=== PATIENT | male | born 1965 | race African-American/Black ===

== ENCOUNTER 2018-07-18 06:55 | Outpatient (CLI) | payer OTHER ==
--- NOTE | 2018-07-18 12:42 | Ultrasound Report ---
Procedure Date: 07/18/2018 Accession Number: [id number] / [id number] Procedure: US - Abdomen Limited CPT Code: FULL RESULT: EXAM: ABDOMEN ULTRASOUND LIMITED, RUQ EXAM DATE: 07/18/2018 08:35 AM. CLINICAL HISTORY: Abnormal liver function. COMPARISON: None. TECHNIQUE: Real-time scanning was performed with static images obtained. FINDINGS: Liver: Liver demonstrates increased echogenicity and heterogeneity with region of focal fatty sparing in the gallbladder fossa. The liver measures at least 18 cm. Main portal vein flow: Hepatopetal. Gallbladder: Normal. No stones, wall thickening, or sonographic Villasenor's sign. Biliary System: CBD measures 4 mm. No intrahepatic or extrahepatic ductal dilatation. The right kidney measures 12.4 cm in maximal sagittal dimension and does not demonstrate hydronephrosis or mass. Parenchymal blood flow is preserved by color Doppler. Other: None. IMPRESSION: Hepatic steatosis. RADIA
== END 2018-07-18 06:56 | disposition home or self-care (01) ==
LOC: DI 06:55
PROVIDERS: ATTEND Family Medicine
DX: K76.0 Fatty (change of) liver, not elsewhere classified (principal)
CPT/HCPCS: 76705

== ENCOUNTER 2019-11-05 08:00 | Outpatient (CLI) | payer OTHER | END 2019-11-05 23:59 | disposition home or self-care (01) | LOC: LAB.R 08:00 | PROVIDERS: ATTEND Family Medicine | DX: R30.0 Dysuria (principal) | CPT/HCPCS: 87077; 87086 ==

== ENCOUNTER 2020-08-05 08:00 | Outpatient (CLI) | payer OTHER ==
[2020-08-05 11:54] LABS: BILIRUBIN,URINE NEGATIVE (NEGATIVE); GLUCOSE, URINE (UA) NEGATIVE (NEGATIVE); KETONES,URINE (UA) NEGATIVE (NEGATIVE); LEUKOCYTE ESTERASE, URINE MODERATE (NEGATIVE); NITRITE,URINE NEGATIVE (NEGATIVE); OCCULT BLOOD,URINE TRACE-INTA (NEGATIVE); PROTEIN,URINE NEGATIVE (NEGATIVE); UROBILINOGEN,URINE 0.2 (NORMAL) E.U./dL (NORMAL)
[2020-08-05 12:09] LABS: BACTERIA,URINE Moderate /HPF (None Seen); CLARITY,URINE CLOUDY (CLEAR); RBC,URINE 0-5 /HPF (0-5); SQUAMOUS EPITHELIAL CELL,UR RARE Squamous (<= Few)
== END 2020-08-05 23:59 | disposition home or self-care (01) ==
LOC: LAB.R 08:00
PROVIDERS: ATTEND Family Medicine
DX: R30.0 Dysuria (principal)
CPT/HCPCS: 81001; 87086

== ENCOUNTER 2020-11-14 09:19 | Outpatient (CLI) | payer OTHER | END 2020-11-14 09:20 | disposition home or self-care (01) | LOC: LAB.N 09:19 | PROVIDERS: ATTEND Urology | DX: Z85.46 Personal history of malignant neoplasm of prostate (principal) | CPT/HCPCS: 36415; 84153 ==

== ENCOUNTER 2020-12-07 08:00 | Outpatient (CLI) | payer OTHER ==
[2020-12-07 18:24] LABS: CREATININE,URINE 244.2 mg/dL; MICROALBUM/CREATININE RATIO,UR 10.2 ug/mg (<30.0); MICROALBUMIN,URINE 2.5 mg/dL (0-300.0)
[2020-12-07 19:00] LABS: ALBUMIN 4.5 g/dL (3.2-5.5); ALBUMIN/GLOBULIN RATIO 1.6 (1.0-2.2); ALKALINE PHOSPHATASE 50 IU/L (42-121); ALT ALANINE AMINOTRANSFERASE 37 IU/L (10-60); AST ASPARTATE AMINOTRANSFERASE 24 IU/L (10-42); BASOPHILS # (AUTO) 0.1 10^3/uL (0.0-0.1); BILIRUBIN,TOTAL 1.1 mg/dL (0.2-1.0); BUN - BLOOD UREA NITROGEN 15 mg/dL (6-20); CALCIUM 9.4 mg/dL (8.5-10.3); CARBON DIOXIDE - CO2 27 mmol/L (21-32); CHLORIDE 104 mmol/L (101-111); CHOL/HDL RATIO 4.6 (<5.0); CHOLESTEROL 205 mg/dL; CREATININE 1.1 mg/dL (0.6-1.2); EOSINOPHILS # (AUTO) 0.1 10^3/uL (0.0-0.7); EOSINOPHILS % (AUTO) 1.3 %; GLUCOSE 170 mg/dL (70-100); HDL CHOLESTEROL 45 mg/dL; HGB - HEMOGLOBIN 15.3 g/dL (14.0-18.0); LDL CHOLESTEROL,CALCULATED 115 mg/dL; LDL/HDL RATIO 2.6 (<3.6); LYMPHOCYTES # (AUTO) 2.8 10^3/uL (1.5-3.5); LYMPHOCYTES % (AUTO) 45.4 %; MEAN CORPUSCULAR HGB CONC 32.3 g/dL (32.0-36.0); MEAN CORPUSCULAR VOLUME 89.8 fL (80.0-94.0); MEAN PLATELET VOLUME 9.1 fL (7.4-11.4); MONOCYTES # (AUTO) 0.4 10^3/uL (0.0-1.0); NEUTROPHILS # (AUTO) 2.8 10^3/uL (1.5-6.6); NEUTROPHILS % (AUTO) 45.1 %; PLT - PLATELET COUNT 259 10^3/uL (130-450); RED BLOOD COUNT 5.27 10^6/uL (4.70-6.10); SODIUM 139 mmol/L (135-145); TOTAL PROTEIN 7.3 g/dL (6.7-8.2); VLDL CHOLESTEROL 45 mg/dL; WHITE BLOOD COUNT 6.2 x10^3/uL (4.8-10.8)
[2020-12-07 19:38] LABS: HEMOGLOBIN A1c% 6.3 % (4.27-6.07)
== END 2020-12-07 23:59 | disposition home or self-care (01) ==
LOC: LAB.WCP 08:00
PROVIDERS: ATTEND Family Medicine
DX: R73.03 Prediabetes (principal)
CPT/HCPCS: 36415; 80053; 80061; 82043; 82570; 83036; 83721; 85025

== ENCOUNTER 2021-03-02 07:56 | Day surgery (SDC) | payer OTHER ==
[2021-03-02] MEDS ORDERED: LACTATED RINGERS 1,000 ML IV ONE ×2 (08:24→10:13)
[2021-03-02] MEDS ORDERED: fentaNYL 250 MCG/5 ML VIAL ONE (09:50)
[2021-03-02] MEDS ORDERED: MIDAZOLAM 2 MG/2 ML VIAL ONE ×2 (09:50→09:52)
[2021-03-02 10:30] VITALS: BP 122/81
== END 2021-03-02 07:57 | disposition home or self-care (01) ==
LOC: SDS 07:56
PROVIDERS: ATTEND Surgery
PROC: 0DBM8ZZ Excision of Descending Colon, Via Natural or Artificial Opening Endoscopic (ICD-10-PCS; 2021-03-02)
PROC: 0DBN8ZZ Excision of Sigmoid Colon, Via Natural or Artificial Opening Endoscopic (ICD-10-PCS; principal; 2021-03-02 09:00)
DX: Z12.11 Encounter for screening for malignant neoplasm of colon (principal); D12.4 Benign neoplasm of descending colon; D12.5 Benign neoplasm of sigmoid colon; I10 Essential (primary) hypertension; E78.5 Hyperlipidemia, unspecified; Z85.46 Personal history of malignant neoplasm of prostate; Z87.891 Personal history of nicotine dependence
CPT/HCPCS: 45384; 45385; J3010; J7120

== ENCOUNTER 2023-03-13 12:00 | Outpatient (CLI) | payer OTHER ==
[2023-03-13 18:37] LABS: BASOPHILS # (AUTO) 0.1 10^3/uL (0.0-0.1); BASOPHILS % (AUTO) 0.9 %; EOSINOPHILS # (AUTO) 0.1 10^3/uL (0.0-0.7); HCT - HEMATOCRIT 44.3 % (42.0-52.0); HGB - HEMOGLOBIN 13.6 g/dL (14.0-18.0); LYMPHOCYTES # (AUTO) 2.6 10^3/uL (1.5-3.5); LYMPHOCYTES % (AUTO) 28.8 %; MEAN CORPUSCULAR HEMOGLOBIN 26.4 pg (27.0-31.0); MEAN CORPUSCULAR HGB CONC 30.7 g/dL (32.0-36.0); MEAN CORPUSCULAR VOLUME 85.9 fL (80.0-94.0); MEAN PLATELET VOLUME 9.7 fL (7.4-11.4); MONOCYTES # (AUTO) 1.1 10^3/uL (0.0-1.0); MONOCYTES % (AUTO) 11.5 %; NEUTROPHILS # (AUTO) 5.3 10^3/uL (1.5-6.6); NEUTROPHILS % (AUTO) 57.5 %; PLT - PLATELET COUNT 376 10^3/uL (130-450); RED BLOOD COUNT 5.16 10^6/uL (4.70-6.10); RED CELL DISTRIBUTION WIDTH 15.1 % (12.0-15.0); WHITE BLOOD COUNT 9.1 x10^3/uL (4.8-10.8)
[2023-03-13 18:52] LABS: ALBUMIN/GLOBULIN RATIO 0.9 (1.0-2.2); BILIRUBIN,TOTAL 1.2 mg/dL (0.2-1.0); CALCIUM 8.8 mg/dL (8.5-10.3); CREATININE 0.9 mg/dL (0.6-1.2); POTASSIUM 3.7 mmol/L (3.5-5.0); TOTAL PROTEIN 8.3 g/dL (6.7-8.2)
[2023-03-13 19:07] LABS: THYROID STIMULATING HORMONE 1.51 uIU/mL (0.34-5.60)
[2023-03-13 21:01] LABS: ESTIMATED AVERAGE GLUCOSE 163 mg/dL (70-100); HEMOGLOBIN A1c% 7.3 % (4.27-6.07)
== END 2023-03-13 12:15 | disposition home or self-care (01) ==
LOC: LAB.N 12:00
PROVIDERS: ATTEND Registered Nurse
DX: I10 Essential (primary) hypertension (principal); R11.0 Nausea; E66.9 Obesity, unspecified; R10.9 Unspecified abdominal pain; K59.00 Constipation, unspecified
CPT/HCPCS: 36415; 80053; 83036; 84443; 85025

== ENCOUNTER 2023-04-10 14:41 | Emergency (ER) | payer OTHER ==
[2023-04-10 15:10] LABS: BASOPHILS # (AUTO) 0.1 10^3/uL (0.0-0.1); BASOPHILS % (AUTO) 0.7 %; EOSINOPHILS # (AUTO) 0.1 10^3/uL (0.0-0.7); HCT - HEMATOCRIT 42.1 % (42.0-52.0); HGB - HEMOGLOBIN 13.1 g/dL (14.0-18.0); LYMPHOCYTES # (AUTO) 2.7 10^3/uL (1.5-3.5); LYMPHOCYTES % (AUTO) 29.7 %; MEAN CORPUSCULAR HEMOGLOBIN 25.8 pg (27.0-31.0); MEAN CORPUSCULAR HGB CONC 31.1 g/dL (32.0-36.0); MEAN CORPUSCULAR VOLUME 82.9 fL (80.0-94.0); MEAN PLATELET VOLUME 9.4 fL (7.4-11.4); MONOCYTES # (AUTO) 0.8 10^3/uL (0.0-1.0); MONOCYTES % (AUTO) 9.1 %; NEUTROPHILS # (AUTO) 5.4 10^3/uL (1.5-6.6); NEUTROPHILS % (AUTO) 59.3 %; PLT - PLATELET COUNT 454 10^3/uL (130-450); RED BLOOD COUNT 5.08 10^6/uL (4.70-6.10); RED CELL DISTRIBUTION WIDTH 15.7 % (12.0-15.0); WHITE BLOOD COUNT 9.1 x10^3/uL (4.8-10.8)
--- OUTSIDE RECORDS SUMMARY | 2023-04-10 15:10 | EXTERNAL MEDICAL SUMMARY RPT | Continuity of Care Document ---
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 Role Phone Unavailable Unavailable Unavailable Justo Klein,Jose, Mikey Unavailable Unavailabl vito Montgomery, Viktoriya Unavailable Unavailable Javi Patient Registrar, Pallavi Unavailable Unavailable Hortencia, Test Results Unavailable Unavailable Medications date description facility 2023-03-14 00:00 colchicine All 2023-03-14 00:00 colchicine All 2023-03-14 00:00 colchicine All 2023-03-13 00:00 sodium,potassium,mag sulfates A 2023-03-13 00:00 sodium,potassium,mag sulfates A 2023-03-13 00:00 sodium,potassium,mag sulfates A 2023-03-13 00:00 sodium,potassium,mag sulfates A 2023-03-13 00:00 naproxen sodium All 2023-03-14 00:00 naproxen sodium All 2023-03-15 00:00 naproxen sodium All 2023-03-15 00:00 naproxen sodium All 2023-03-13 00:00 naproxen sodium All 2023-03-14 00:00 naproxen sodium All 2023-03-15 00:00 naproxen sodium All 2023-03-15 00:00 naproxen sodium All 2023-03-13 00:00 sodium,potassium,mag sulfates A 2023-03-13 00:00 sodium,potassium,mag sulfates A 2023-03-13 00:00 sodium,potassium,mag sulfates A 2023-03-13 00:00 sodium,potassium,mag sulfates A 2023-03-13 00:00 glycerin (adult) All 2023-03-13 00:00 glycerin (adult) All 2023-03-13 00:00 glycerin (adult) All 2023-03-13 00:00 glycerin (adult) All 2023-03-14 00:00 colchicine All 2023-03-14 00:00 colchicine All 2023-03-14 00:00 colchicine All 2023-03-13 00:00 naproxen sodium All 2023-03-14 00:00 naproxen sodium All 2023-03-15 00:00 naproxen sodium All 2023-03-15 00:00 naproxen sodium All 2023-03-15 00:00 metformin All 2023-03-15 00:00 metformin All 2023-03-15 00:00 metformin All 2023-03-15 00:00 metformin All 2023-03-13 00:00 glycerin (adult) All 2023-03-13 00:00 glycerin (adult) All 2023-03-13 00:00 glycerin (adult) All 2023-03-13 00:00 glycerin (adult) All 2023-03-13 00:00 sodium,potassium,mag sulfates A 2023-03-13 00:00 sodium,potassium,mag sulfates A 2023-03-13 00:00 sodium,potassium,mag sulfates A 2023-03-13 00:00 sodium,potassium,mag sulfates A 2023-03-14 00:00 colchicine All 2023-03-14 00:00 colchicine All 2023-03-14 00:00 colchicine All 2023-03-13 00:00 sodium,potassium,mag sulfates A 2023-03-13 00:00 sodium,potassium,mag sulfates A 2023-03-13 00:00 sodium,potassium,mag sulfates A 2023-03-13 00:00 sodium,potassium,mag sulfates A 2023-03-15 00:00 metformin All 2023-03-15 00:00 metformin All 2023-03-13 00:00 glycerin (adult) All 2023-03-13 00:00 glycerin (adult) All 2023-03-13 00:00 glycerin (adult) All 2023-03-13 00:00 glycerin (adult) All 2023-03-13 00:00 naproxen sodium All 2023-03-14 00:00 naproxen sodium All 2023-03-15 00:00 naproxen sodium All 2023-03-15 00:00 naproxen sodium All 2023-03-14 00:00 colchicine All 2023-03-14 00:00 colchicine All 2023-03-14 00:00 colchicine All 2023-03-15 00:00 metformin All 2023-03-15 00:00 metformin All Problems date description facility 2023-03-13 00:00 Acute abdominal pain All 2023-03-13 00:00 Acute abdominal pain All 2023-03-13 00:00 Acute abdominal pain All 2023-03-13 00:00 Constipation All 2023-03-13 00:00 Constipation All 2023-03-13 00:00 Constipation All 2023-03-13 00:00 Liver function tests outside re ference range All 2023-03-13 00:00 Liver function tests outside re ference range All 2023-03-13 00:00 Nausea alone All 2023-03-13 00:00 Nausea alone All 2023-03-13 00:00 Nausea alone All 2023-03-13 00:00 Abdominal pain, unspecified sit e All 2023-03-13 00:00 Abdominal pain, unspecified sit e All 2023-03-13 00:00 Abdominal pain, unspecified sit e All 2023-03-13 00:00 Nonspecific abnormal results of function study of liver All 2023-03-13 00:00 Nonspecific abnormal results of function study of liver All 2023-03-13 00:00 Constipation, unspecified All 2023-03-13 00:00 Constipation, unspecified All 2023-03-13 00:00 Constipation, unspecified All 2023-03-13 00:00 Unspecified abdominal pain All 2023-03-13 00:00 Unspecified abdominal pain All 2023-03-13 00:00 Unspecified abdominal pain All 2023-03-13 00:00 Nausea All 2023-03-13 00:00 Nausea All 2023-03-13 00:00 Nausea All 2023-03-13 00:00 Abnormal results of liver funct ion studies All 2023-03-13 00:00 Abnormal results of liver funct ion studies All Procedures date description facility 2023-03-13 00:00 Visit Code Hold All 2023-03-13 00:00 Visit Code Hold All 2023-03-13 00:00 Visit Code Hold All 2023-03-13 00:00 Visit Code Hold All 2023-03-13 00:00 COMPREHENSIVE METABOLIC PANEL A ll 2023-03-13 00:00 COMPREHENSIVE METABOLIC PANEL A ll 2023-03-13 00:00 COMPREHENSIVE METABOLIC PANEL A ll 2023-03-13 00:00 COMPREHENSIVE METABOLIC PANEL A ll 2023-03-13 00:00 HGBA1C All 2023-03-13 00:00 HGBA1C All 2023-03-13 00:00 HGBA1C All 2023-03-13 00:00 HGBA1C All 2023-03-13 00:00 CBC W/Diff/Plt All 2023-03-13 00:00 CBC W/Diff/Plt All 2023-03-13 00:00 CBC W/Diff/Plt All 2023-03-13 00:00 CBC W/Diff/Plt All 2023-03-13 00:00 TSH WITH REFLEX TO FT4 All 2023-03-13 00:00 TSH WITH REFLEX TO FT4 All 2023-03-13 00:00 TSH WITH REFLEX TO FT4 All 2023-03-13 00:00 TSH WITH REFLEX TO FT4 All Results/Labs test date author facility value unit interpretation Result panel 1 (unknown) (no date) (unknown) All (no value) (units unknown) (unknown) Result panel 2 (unknown) (no date) (unknown) All (no value) (units unknown) (unknown) Result panel 3 (unknown) (no date) (unknown) All (no value) (units unknown) (unknown) Result panel 4 (unknown) (no date) (unknown) All (no value) (units unknown) (unknown) Result panel 5 (unknown) (no date) (unknown) All (no value) (units unknown) (unknown) Result panel 6 (unknown) (no date) (unknown) All (no value) (units unknown) (unknown) Result panel 7 (unknown) (no date) (unknown) All (no value) (units unknown) (unknown) Result panel 8 (unknown) (no date) (unknown) All (no value) (units unknown) (unknown) Result panel 9 (unknown) (no date) (unknown) All (no value) (units unknown) (unknown) Result panel 10 (unknown) (no date) (unknown) All (no value) (units unknown) (unknown) Result panel 11 (unknown) (no date) (unknown) All (no value) (units unknown) (unknown) Result panel 12 (unknown) (no date) (unknown) All (no value) (units unknown) (unknown) Result panel 13 (unknown) (no date) (unknown) All (no value) (units unknown) (unknown) Result panel 14 (unknown) (no date) (unknown) All (no value) (units unknown) (unknown) Result panel 15 (unknown) (no date) (unknown) All (no value) (units unknown) (unknown) Result panel 16 (unknown) (no date) (unknown) All (no value) (units unknown) (unknown) Result panel 17 (unknown) (no date) (unknown) All (no value) (units unknown) (unknown) Result panel 18 (unknown) (no date) (unknown) All (no value) (units unknown) (unknown) Result panel 19 (unknown) (no date) (unknown) All (no value) (units unknown) (unknown) Result panel 20 (unknown) (no date) (unknown) All (no value) (units unknown) (unknown) Result panel 21 (unknown) (no date) (unknown) All (no value) (units unknown) (unknown) Result panel 22 (unknown) (no date) (unknown) All (no value) (units unknown) (unknown) Result panel 23 (unknown) (no date) (unknown) All (no value) (units unknown) (unknown) Result panel 24 (unknown) (no date) (unknown) All (no value) (units unknown) (unknown) Result panel 25 (unknown) (no date) (unknown) All (no value) (units unknown) (unknown) Result panel 26 (unknown) (no date) (unknown) All (no value) (units unknown) (unknown) Result panel 27 (unknown) (no date) (unknown) All (no value) (units unknown) (unknown) Result panel 28 (unknown) (no date) (unknown) All (no value) (units unknown) (unknown) Result panel 29 (unknown) (no date) (unknown) All (no value) (units unknown) (unknown) Result panel 30 (unknown) (no date) (unknown) All (no value) (units unknown) (unknown) Result panel 31 (unknown) (no date) (unknown) All (no value) (units unknown) (unknown) Result panel 32 (unknown) (no date) (unknown) All (no value) (units unknown) (unknown) Result panel 33 (unknown) (no date) (unknown) All (no value) (units unknown) (unknown) Result panel 34 (unknown) (no date) (unknown) All (no value) (units unknown) (unknown) Result panel 35 (unknown) (no date) (unknown) All (no value) (units unknown) (unknown) Result panel 36 (unknown) (no date) (unknown) All (no value) (units unknown) (unknown) Result panel 37 (unknown) (no date) (unknown) All (no value) (units unknown) (unknown) Result panel 38 (unknown) (no date) (unknown) All (no value) (units unknown) (unknown) Result panel 39 (unknown) (no date) (unknown) All (no value) (units unknown) (unknown) Result panel 40 (unknown) (no date) (unknown) All (no value) (units unknown) (unknown) Result panel 41 (unknown) (no date) (unknown) All (no value) (units unknown) (unknown) Result panel 42 (unknown) (no date) (unknown) All (no value) (units unknown) (unknown) Result panel 43 (unknown) (no date) (unknown) All (no value) (units unknown) (unknown) Result panel 44 (unknown) (no date) (unknown) All (no value) (units unknown) (unknown) Result panel 45 (unknown) (no date) (unknown) All (no value) (units unknown) (unknown) Result panel 46 (unknown) (no date) (unknown) All (no value) (units unknown) (unknown) Result panel 47 (unknown) (no date) (unknown) All (no value) (units unknown) (unknown) Result panel 48 (unknown) (no date) (unknown) All (no value) (units unknown) (unknown) Result panel 49 (unknown) (no date) (unknown) All (no value) (units unknown) (unknown) Result panel 50 (unknown) (no date) (unknown) All (no value) (units unknown) (unknown) Result panel 51 (unknown) (no date) (unknown) All (no value) (units unknown) (unknown) Result panel 52 (unknown) (no date) (unknown) All (no value) (units unknown) (unknown) Result panel 53 (unknown) (no date) (unknown) All (no value) (units unknown) (unknown) Result panel 54 (unknown) (no date) (unknown) All (no value) (units unknown) (unknown) Result panel 55 (unknown) (no date) (unknown) All (no value) (units unknown) (unknown) Result panel 56 (unknown) (no date) (unknown) All (no value) (units unknown) (unknown) Result panel 57 (unknown) (no date) (unknown) All (no value) (units unknown) (unknown) Result panel 58 (unknown) (no date) (unknown) All (no value) (units unknown) (unknown) Result panel 59 (unknown) (no date) (unknown) All (no value) (units unknown) (unknown) Result panel 60 (unknown) (no date) (unknown) All (no value) (units unknown) (unknown) Result panel 61 (unknown) (no date) (unknown) All (no value) (units unknown) (unknown) Result panel 62 (unknown) (no date) (unknown) All (no value) (units unknown) (unknown) Result panel 63 (unknown) (no date) (unknown) All (no value) (units unknown) (unknown) Result panel 64 (unknown) (no date) (unknown) All (no value) (units unknown) (unknown) Result panel 65 (unknown) (no date) (unknown) All (no value) (units unknown) (unknown) Result panel 66 (unknown) (no date) (unknown) All (no value) (units unknown) (unknown) Result panel 67 (unknown) (no date) (unknown) All (no value) (units unknown) (unknown) Result panel 68 (unknown) (no date) (unknown) All (no value) (units unknown) (unknown) Result panel 69 (unknown) (no date) (unknown) All (no value) (units unknown) (unknown) Result panel 70 (unknown) (no date) (unknown) All (no value) (units unknown) (unknown) Result panel 71 (unknown) (no date) (unknown) All (no value) (units unknown) (unknown) Result panel 72 (unknown) (no date) (unknown) All (no value) (units unknown) (unknown) Result panel 73 (unknown) (no date) (unknown) All (no value) (units unknown) (unknown) Result panel 74 (unknown) (no date) (unknown) All (no value) (units unknown) (unknown) Result panel 75 (unknown) (no date) (unknown) All (no value) (units unknown) (unknown) Vital Signs date measurement value units 2023-03-13 00:00 BMI 31.25 kg/m2 2023-03-13 00:00 BP_diastolic 82 mmHg 2023-03-13 00:00 BP_systolic 130 mmHg 2023-03-13 00:00 heart_rate 91 /min 2023-03-13 00:00 height_metric 182.25 cm 2023-03-13 00:00 height_standard 71.75 in 2023-03-13 00:00 respiration_rate 18 /min 2023-03-13 00:00 temperature_metric 36.5 C 2023-03-13 00:00 temperature_standard 97.7 F 2023-03-13 00:00 weight_metric 103.42 kg 2023-03-13 00:00 weight_standard 228 lb
[2023-04-10 15:14] LABS: GLUCOSE, URINE (UA) NEGATIVE (NEGATIVE); KETONES,URINE (UA) TRACE mg/dL (NEGATIVE); LEUKOCYTE ESTERASE, URINE NEGATIVE (NEGATIVE); NITRITE,URINE NEGATIVE (NEGATIVE); OCCULT BLOOD,URINE NEGATIVE (NEGATIVE); PROTEIN,URINE 30 mg/dL (NEGATIVE); UROBILINOGEN,URINE >=8.0 E.U./dL (NORMAL)
[2023-04-10 15:24] LABS: ALBUMIN/GLOBULIN RATIO 0.9 (1.0-2.2); BILIRUBIN,TOTAL 1.1 mg/dL (0.2-1.0); CALCIUM 9.2 mg/dL (8.5-10.3); POTASSIUM 4.1 mmol/L (3.5-5.0); TOTAL PROTEIN 8.7 g/dL (6.7-8.2)
[2023-04-10 15:25] LABS: CLARITY,URINE CLEAR (CLEAR)
[2023-04-10 15:27] LABS: BILIRUBIN,URINE NEGATIVE (NEGATIVE); ICTOTEST,URINE NEGATIVE
[2023-04-10 15:34] LABS: BACTERIA,URINE Rare /HPF (None Seen); MUCUS,URINE Few Strands; RBC,URINE 0-5 /HPF (0-5); SPERM,URINE PRESENT; SQUAMOUS EPITHELIAL CELL,UR FEW Squamous (<= Few); WBC,URINE 0-3 /HPF (0-3)
--- NOTE | 2023-04-10 15:41 | ED Physician Documentation ---
PD HPI ABD PAIN - Stated complaint Stated Complaint: ABD PX,MALE GI - Chief complaint Chief Complaint: Abd Pain - History obtained from History obtained from: Patient - History of Present Illness Timing - onset: How many weeks ago (4-6) Timing - duration: Weeks (4-6) Timing - details: Gradual onset, Waxing and waning Quality: Cramping, Aching, Pain, Other (feeling of fullness and needing to have BM without actually large amount of stool for 1-2 months.) Location: Suprapubic, LLQ Radiation: No: Lower back Improved by: No: Laying still, BM Worsened by: Palpation. No: Eating Associated symptoms: Nausea, Diarrhea (soft with mucous at times.). No: Fever, Vomiting, Constipation Recently seen: Clinic (seen at walk in and referred to primary care and gastroenterology. Patient has appt with new PCP next week an GI next Saturday. Has increased pain and cramps the past few days so here for eval.) Review of Systems Constitutional: reports: Fever (intermittent for a day or so at a time the past month.). denies: Chills Cardiac: denies: Chest pain / pressure, Palpitations Respiratory: denies: Dyspnea, Cough GI: reports: Abdominal Pain, Nausea. denies: Vomiting, Constipation, Diarrhea, Bloody / black stool (sometimes mucous) : denies: Dysuria, Frequency Endocrine: reports: Weight loss (30 lbs in the past 2 months.) PD PAST MEDICAL HISTORY - Past Medical History Cardiovascular: Hypertension Respiratory: None Endocrine/Autoimmune: None GI: None : None, Benign prostate hypertrophy, Other (prior prostate cancer with surgery and radiation seeds. ) Psych: None Musculoskeletal: Osteoarthritis, Chronic back pain Derm: None - Past Surgical History Ortho: Other - Present Medications Home Medications: Ambulatory Orders Medication Instructions Recorded Confirmed Colchicine 0.6 mg PO DAILY 03/02/21 04/10/23 Sildenafil Citrate [Revatio] 20 mg PO DAILY 03/02/21 04/10/23 allopurinoL [Zyloprim] 300 mg PO DAILY 03/02/21 04/10/23 Docusate Sodium 100Mg Capsule 100 mg PO DAILY #20 cap 04/10/23 [Colace 100Mg Capsule] HYDROcod/ACETAM 5/325 [[place] 5/325] 1 ea PO Q6H PRN #20 tablet 04/10/23 - Allergies Allergies/Adverse Reactions: Allergies Allergy/AdvReac Type Severity Reaction Status Date / Time metformin Allergy Emesis Verified 04/10/23 14:51 PD ED PE NORMAL - Vitals Vital signs reviewed: Yes - General General: Alert and oriented X 3, Well developed/nourished - Cardiac Cardiac: RRR, No murmur - Respiratory Respiratory: Clear bilaterally - Abdomen Abdomen: Normal bowel sounds, Soft, Non distended, No organomegaly, Other (tender lower abd at LLQ and suprapubic area. ) - Rectal Rectal: Deferred - Back Back: No CVA TTP - Derm Derm: Normal color, Warm and dry - Extremities Extremities: Normal ROM s pain, No edema, No calf tenderness / cord Results - Vitals Vitals: Vital Signs - 24 hr 04/10/23 04/10/23 04/10/23 14:47 15:42 16:07 Temperature 37.1 C Heart Rate 94 80 Respiratory 16 19 18 Rate Blood Pressure 147/82 H 135/90 H O2 Saturation 99 98 04/10/23 04/10/23 17:27 18:35 Temperature 36.7 C Heart Rate 90 73 Respiratory 18 17 Rate Blood Pressure 137/79 H O2 Saturation 98 99 Oxygen O2 Source Room air - Labs Labs: Laboratory Tests 04/10/23 04/10/23 04/10/23 15:06 15:06 15:06 WBC 9.1 RBC 5.08 Hgb 13.1 L Hct 42.1 MCV 82.9 MCH 25.8 L MCHC 31.1 L RDW 15.7 H Plt Count 454 H MPV 9.4 Neut # (Auto) 5.4 Lymph # (Auto) 2.7 [place] # (Auto) 0.8 Eos # (Auto) 0.1 Baso # (Auto) 0.1 Absolute Nucleated RBC 0.00 Nucleated RBC % 0.0 ESR Sodium 138 Potassium 4.1 Chloride 104 Carbon Dioxide 26 Anion Gap 8.0 BUN 16 Creatinine 1.0 Estimated GFR (MDRD) 94 Glucose 132 H Calcium 9.2 Total Bilirubin 1.1 H AST 40 ALT 43 Alkaline Phosphatase 147 H Total Protein 8.7 H Albumin 4.0 Globulin 4.7 H Albumin/Globulin Ratio 0.9 L Lipase 33 TSH Urine Color DARK YELLOW Urine Clarity CLEAR Urine pH 6.0 Ur Specific [place] >=1.030 H Urine Protein 30 H Urine Glucose (UA) NEGATIVE Urine Ketones TRACE Urine Occult Blood NEGATIVE Urine Nitrite NEGATIVE Urine Bilirubin NEGATIVE Urine Urobilinogen >=8.0 H Ur Leukocyte Esterase NEGATIVE Urine RBC 0-5 Urine WBC 0-3 Ur Squamous Epith Cells FEW Squamous Urine Bacteria Rare Urine Mucus Few Strands Urine Sperm PRESENT Ur Microscopic Review INDICATED Urine Culture Comments NOT INDICATED 04/10/23 04/10/23 15:06 15:06 WBC RBC Hgb Hct MCV MCH MCHC RDW Plt Count MPV Neut # (Auto) Lymph # (Auto) [place] # (Auto) Eos # (Auto) Baso # (Auto) Absolute Nucleated RBC Nucleated RBC % ESR 52 H Sodium Potassium Chloride Carbon Dioxide Anion Gap BUN Creatinine Estimated GFR (MDRD) Glucose Calcium Total Bilirubin AST ALT Alkaline Phosphatase Total Protein Albumin Globulin Albumin/Globulin Ratio Lipase TSH 1.82 Urine Color Urine Clarity Urine pH Ur Specific [place] Urine Protein Urine Glucose (UA) Urine Ketones Urine Occult Blood Urine Nitrite Urine Bilirubin Urine Urobilinogen Ur Leukocyte Esterase Urine RBC Urine WBC Ur Squamous Epith Cells Urine Bacteria Urine Mucus Urine Sperm Ur Microscopic Review Urine Culture Comments - Rads (name of study) abd/pelvic CT Relevant Findings:: Prelim report reviewed (rectosigmoid mass c/w colon cancer, multiple liver mets. prostate seeds noted in place. ), EMP independent interpretation of test, See rad report PD Medical Decision Making - ED course Complexity details: reviewed results (abd/pelvic CT showing apparent rectosigmoid mass c/w colon cancer, with multiple liver mets. ), considered differential (has lower abd pains and weight loww. Certainly is reasonable for referral to GI. However, an initial question will be imaging to evaluate and I feel this should be done now and is appropriate for aiding the GI specialist with that level of testing before appt. ), d/w patient ED course: he is probably unlikely to get dfollow up with GI any faster than is already in place (appt next Saturday). However he should call office with the new information to see if changes the plan and focus of the appt. Departure - Departure Disposition: 01 Home, Self Care Clinical Impression: Lower abdominal pain, Colonic mass, Colon cancer metastasized to liver Condition: Stable Record reviewed to determine appropriate education?: Yes Follow-Up: Sara Denny PA [Primary Care Provider] - [facility] [Provider Group] Prescriptions: Docusate Sodium 100Mg Capsule [Colace 100Mg Capsule] 100 mg PO DAILY #20 cap HYDROcod/ACETAM 5/325 [[place] 5/325] 1 ea PO Q6H PRN #20 tablet PRN Reason: Pain Comments: Your basic blood tests are good without any obvious abnormality of the chemistry panel nor blood count. Your CT scan however shows a significant abnormality showing a most likely colon cancer at the rectosigmoid area with apparent metastases to the liver. Contact your primary care and also the [facility] gastroenterology tomorrow. I do have an appointment with the shift stacker next Saturday. Talk with the office and see if the appointment needs changing based on the CT findings or it may be that next Saturday is as soon as you would be able to get anyway. Presumably the shift stacker will be able to do a scope in provide tissue biopsies in order to decide the best treatment combination of surgery, radiation, chemotherapy. Tylenol ibuprofen if needed for pains or cramps. Add hydrocodone if needed for worse pains. Add docusate stool softener daily so you do not get constipated. I sent your prescriptions to your preferred pharmacy. [facility] in [place]. I am prescribing a short course of narcotic pain medication for you. These are potentially dangerous and addictive medications that should be used carefully. These medications may constipate you. Take an [id number] stool softener such as docusate twice daily with plenty of water while taking these medications. If you go 24 hours without a bowel movement, take [id number] MiraLAX, per package instructions. Do not drink or drive while taking these medications. If you received narcotic or sedating medications while in the emergency department do not drive for 24 hours. Store this medication in a safe, secure place and out of reach of children. It is a violation of federal law to give or sell this medication to another person or to use in a manner other than prescribed. The ED will not refill narcotic prescriptions, including prescriptions lost or stolen. You can dispose of unwanted medications at the [facility]'s office or at several pharmacies such as [facility]. Discharge Date/Time: 04/10/23 18:36
[2023-04-10] MEDS ORDERED: iohexoL-300 100 ML VIAL ONE (17:06)
[2023-04-10] MEDS ORDERED: iohexoL-300 100 ML VIAL IVP ONE (17:25)
--- NOTE | 2023-04-10 17:46 | CT Report ---
PROCEDURE: ABDOMEN/PELVIS W INDICATIONS: lower abd pain intermittent for weeks; weight loss CONTRAST: 100ml Omnipaque 300 TECHNIQUE: After the administration of IV contrast, 5 mm thick sections acquired from the diaphragms to the symp hysis. 5 mm thick coronal and sagittal reformats were acquired. For radiation dose reduction, the f ollowing was used: automated exposure control, adjustment of mA and/or kV according to patient size. COMPARISON: None FINDINGS: Image quality: Good Lower chest: Unremarkable lower chest. There are prominent cardiophrenic lymph nodes, indeterminate i n the setting of liver metastases. Solid organs: Numerous liver metastases. Index lesion in the inferior right lobe (03/01) measuring 3.2 x 4.5 cm centimeters not overtly cirrhotic. Some of the lesions appear osteophytic. Gallbladder is u nremarkable. No pathologic pancreatic ductal dilation or biliary ductal dilation. No splenomegaly. No adrenal nodules. No hydronephrosis. Vessels and lymph nodes: No abdominal aortic aneurysm. Pathologically enlarged portal caval node paresh ures 2.3 cm in short axis (02/24). Bowel and peritoneum: No evidence of small bowel obstruction. No pathologic ascites. There is a recto sigmoid mass with extramural extension and extramural saphenous invasion (), extraluminal compone nt measuring 1.8 x 2.4 cm on axial image . Body wall: Unremarkable Pelvis: Prostate radiation markers. Bladder is unremarkable. Bones: No acute or suspicious osseous finding. Focal degenerative changes at L3-L4 with anterolisthes is. L3 pars defects. IMPRESSION: Colorectal cancer with numerous liver metastases. Consider outpatient consultation oncologic staging imaging. Reviewed by: Maciel Palacios MD on 04/10/2023 5:45 PM PDT Approved by: Maciel Palacios MD on 04/10/2023 5:45 PM PDT Station ID: [id number]
[2023-04-10 18:36] VITALS: BP 137/79
== END 2023-04-10 18:36 | disposition home or self-care (01) ==
LOC: ED 14:41
DX: C18.7 Malignant neoplasm of sigmoid colon (principal); C78.7 Secondary malignant neoplasm of liver and intrahepatic bile duct
CPT/HCPCS: 36415; 74177; 80053; 81001; 83690; 84443; 85025; 85651; 99284; Q9967; 81003; 87086

== ENCOUNTER 2023-07-24 07:51 | Outpatient (CLI) | payer OTHER ==
[2023-07-24 12:32] LABS: BASOPHILS # (AUTO) 0.1 10^3/uL (0.0-0.1); BASOPHILS % (AUTO) 1.1 %; EOSINOPHILS # (AUTO) 0.1 10^3/uL (0.0-0.7); EOSINOPHILS % (AUTO) 1.2 %; HCT - HEMATOCRIT 41.2 % (42.0-52.0); HGB - HEMOGLOBIN 12.5 g/dL (14.0-18.0); LYMPHOCYTES # (AUTO) 2.9 10^3/uL (1.5-3.5); LYMPHOCYTES % (AUTO) 35.6 %; MEAN CORPUSCULAR HEMOGLOBIN 26.5 pg (27.0-31.0); MEAN CORPUSCULAR HGB CONC 30.3 g/dL (32.0-36.0); MEAN CORPUSCULAR VOLUME 87.3 fL (80.0-94.0); MEAN PLATELET VOLUME 9.7 fL (7.4-11.4); MONOCYTES # (AUTO) 1.2 10^3/uL (0.0-1.0); MONOCYTES % (AUTO) 14.4 %; NEUTROPHILS # (AUTO) 3.9 10^3/uL (1.5-6.6); NEUTROPHILS % (AUTO) 47.3 %; PLT - PLATELET COUNT 405 10^3/uL (130-450); RED BLOOD COUNT 4.72 10^6/uL (4.70-6.10); RED CELL DISTRIBUTION WIDTH 18.2 % (12.0-15.0); WHITE BLOOD COUNT 8.2 x10^3/uL (4.8-10.8)
[2023-07-24 12:46] LABS: ESTIMATED AVERAGE GLUCOSE 128 mg/dL (70-100); HEMOGLOBIN A1c% 6.1 % (4.27-6.07)
[2023-07-24 12:55] LABS: ALBUMIN 4.1 g/dL (3.2-5.5); ALBUMIN/GLOBULIN RATIO 1.1 (1.0-2.2); ALKALINE PHOSPHATASE 262 IU/L (42-121); ALT ALANINE AMINOTRANSFERASE 28 IU/L (10-60); AST ASPARTATE AMINOTRANSFERASE 48 IU/L (10-42); BILIRUBIN,TOTAL 0.7 mg/dL (0.2-1.0); BUN - BLOOD UREA NITROGEN 11 mg/dL (6-20); CALCIUM 9.6 mg/dL (8.5-10.3); CARBON DIOXIDE - CO2 28 mmol/L (21-32); CHLORIDE 102 mmol/L (101-111); CHOL/HDL RATIO 9.5 (<5.0); CHOLESTEROL 391 mg/dL; CREATININE 0.7 mg/dL (0.6-1.3); GFR - MDRD 142 (>89); GLUCOSE 95 mg/dL (74-104); HDL CHOLESTEROL 41 mg/dL; LDL CHOLESTEROL,CALCULATED 327 mg/dL; POTASSIUM 3.8 mmol/L (3.5-4.5); SODIUM 137 mmol/L (135-145); TOTAL PROTEIN 7.8 g/dL (6.4-8.9); TRIGLYCERIDES 113 mg/dL (48-352); URIC ACID 7.4 mg/dL (4.4-7.6); VLDL CHOLESTEROL 23 mg/dL
== END 2023-07-24 07:52 | disposition home or self-care (01) ==
LOC: LAB.N 07:51
PROVIDERS: ATTEND Physician Assistant
DX: E11.65 Type 2 diabetes mellitus with hyperglycemia (principal); M10.9 Gout, unspecified
CPT/HCPCS: 36415; 80053; 80061; 82043; 82570; 83036; 83721; 84443; 84550; 85025

== ENCOUNTER 2023-07-25 08:00 | Outpatient (CLI) | payer OTHER ==
[2023-07-25 14:06] LABS: CREATININE,URINE 97.8 mg/dL
[2023-07-25 14:21] LABS: MICROALBUMIN,URINE < 0.7 mg/dL
== END 2023-07-25 23:59 | disposition home or self-care (01) ==
LOC: LAB.N 08:00
PROVIDERS: ATTEND Physician Assistant
DX: E11.65 Type 2 diabetes mellitus with hyperglycemia (principal)
CPT/HCPCS: 82043; 82570

== ENCOUNTER 2024-01-13 11:07 | Emergency (ER) | payer OTHER ==
[2024-01-13] MEDS: SODIUM CHLORIDE 0.9% 1,000 ML IV STA ×2 (11:30→13:01)
[2024-01-13] MEDS: INSULIN REGULAR HUMAN 300 UNIT/3 ML VIAL IVP STA ×2 (11:32→12:59)
[2024-01-13 11:35] LABS: VBG BASE EXCESS 0.6 mmol/L (-2 - +2); VBG PCO2 44.3 mmHg (41-51); VBG PH 7.386 (7.31-7.41); VBG PO2 49.8 mmHg (25-47); VBG TOTAL CO2 27.3 mmol/L (24-29)
[2024-01-13 11:36] LABS: VBG OXYGEN SATURATION 85.4 % (60-80)
[2024-01-13 11:45] LABS: BASOPHILS % (AUTO) 0.6 %; EOSINOPHILS # (AUTO) 0.1 10^3/uL (0.0-0.7); EOSINOPHILS % (AUTO) 1.2 %; HCT - HEMATOCRIT 45.6 % (42.0-52.0); HGB - HEMOGLOBIN 15.2 g/dL (14.0-18.0); LYMPHOCYTES # (AUTO) 1.7 10^3/uL (1.5-3.5); LYMPHOCYTES % (AUTO) 25.1 %; MEAN CORPUSCULAR HEMOGLOBIN 29.2 pg (27.0-31.0); MEAN CORPUSCULAR HGB CONC 33.3 g/dL (32.0-36.0); MEAN CORPUSCULAR VOLUME 87.5 fL (80.0-94.0); MEAN PLATELET VOLUME 10.4 fL (7.4-11.4); MONOCYTES # (AUTO) 0.4 10^3/uL (0.0-1.0); MONOCYTES % (AUTO) 6.5 %; NEUTROPHILS # (AUTO) 4.5 10^3/uL (1.5-6.6); NEUTROPHILS % (AUTO) 66.5 %; PLT - PLATELET COUNT 209 10^3/uL (130-450); RED BLOOD COUNT 5.21 10^6/uL (4.70-6.10); RED CELL DISTRIBUTION WIDTH 14.1 % (12.0-15.0); WHITE BLOOD COUNT 6.7 x10^3/uL (4.8-10.8)
--- NOTE | 2024-01-13 11:46 | ED Physician Documentation ---
PD HPI NVD - Stated complaint Stated Complaint: HIGH BS - Chief complaint Chief Complaint: General - History obtained from History obtained from: Patient Review of Systems Constitutional: reports: Myalgias, Fatigue. denies: Fever, Chills, Weight Loss Eyes: reports: Decreased vision Nose: denies: Rhinorrhea / runny nose, Congestion Throat: denies: Sore throat Respiratory: denies: Cough GI: reports: Nausea. denies: Abdominal Pain, Vomiting, Diarrhea : denies: Dysuria, Frequency Skin: denies: Rash PD PAST MEDICAL HISTORY - Past Medical History Past Medical History: Yes Cardiovascular: Hypertension Respiratory: None Neuro: None Endocrine/Autoimmune: None GI: Other : None, Benign prostate hypertrophy, Other HEENT: None Psych: None Musculoskeletal: Osteoarthritis, Chronic back pain Derm: None Other Past Medical History: Colon cancer - Past Surgical History Past Surgical History: Yes Ortho: Other - Present Medications Home Medications: Ambulatory Orders Medication Instructions Recorded Confirmed Colchicine 0.6 mg PO DAILY 03/02/21 01/13/24 Sildenafil Citrate [Revatio] 20 mg PO DAILY 03/02/21 01/13/24 allopurinoL [Zyloprim] 300 mg PO DAILY 03/02/21 01/13/24 Docusate Sodium 100Mg Capsule 100 mg PO DAILY #20 cap 04/10/23 01/13/24 [Colace 100Mg Capsule] Minocycline HCl 100 mg PO DAILY 08/09/23 01/13/24 Ondansetron [Zuplenz] 8 mg PO PRN PRN 08/09/23 01/13/24 glipiZIDE [Glucotrol] 5 mg PO BID 30 Days #60 tablet 01/13/24 oxyCODONE [Roxicodone] 1 tab PO DAILY 01/13/24 01/13/24 - Allergies Allergies/Adverse Reactions: Allergies Allergy/AdvReac Type Severity Reaction Status Date / Time metformin Allergy Emesis Verified 01/13/24 11:16 - Social History Does the pt smoke?: No Smoking Status: Never smoker Does the pt drink ETOH?: No Does the pt have substance abuse?: No - Immunizations Immunizations are current?: Yes - POLST Patient has POLST: No PD ED PE NORMAL - Vitals Vital signs reviewed: Yes - General General: Alert and oriented X 3, No acute distress, Well developed/nourished - HEENT HEENT: Pharynx benign. No: Moist mucous membranes - Neck Neck: Supple, no meningeal sign, No adenopathy - Cardiac Cardiac: RRR, No murmur - Respiratory Respiratory: Clear bilaterally - Abdomen Abdomen: Non tender, Non distended Results - Vitals Vitals: Vital Signs - 24 hr 01/13/24 01/13/24 01/13/24 11:10 13:23 14:00 Temperature 36.3 C L Heart Rate 82 77 84 Respiratory 15 18 18 Rate Blood Pressure 140/88 H 139/82 H 137/84 H O2 Saturation 100 99 99 01/13/24 14:09 Temperature Heart Rate 76 Respiratory 18 Rate Blood Pressure 126/72 O2 Saturation 99 Oxygen O2 Source Room air - Labs Labs: Laboratory Tests 01/13/24 01/13/24 01/13/24 11:26 11:26 11:26 WBC 6.7 RBC 5.21 Hgb 15.2 Hct 45.6 MCV 87.5 MCH 29.2 MCHC 33.3 RDW 14.1 Plt Count 209 MPV 10.4 Neut # (Auto) 4.5 Lymph # (Auto) 1.7 [place] # (Auto) 0.4 Eos # (Auto) 0.1 Baso # (Auto) 0.0 Absolute Nucleated RBC 0.00 Nucleated RBC % 0.0 VBG pH 7.386 VBG pCO2 44.3 VBG pO2 49.8 H VBG HCO3 26.0 VBG Total CO2 27.3 VBG O2 Saturation 85.4 H VBG Base Excess 0.6 Sodium Potassium Chloride Carbon Dioxide Anion Gap BUN Creatinine Estimated GFR (MDRD) Glucose POC Whole Bld Glucose Estimat Average Glucose Hemoglobin A1c % Calcium Magnesium Total Bilirubin AST ALT Alkaline Phosphatase Total Protein Albumin Globulin Albumin/Globulin Ratio Lipase Serum Ketones SMALL H 01/13/24 01/13/24 01/13/24 11:26 11:26 12:32 WBC RBC Hgb Hct MCV MCH MCHC RDW Plt Count MPV Neut # (Auto) Lymph # (Auto) [place] # (Auto) Eos # (Auto) Baso # (Auto) Absolute Nucleated RBC Nucleated RBC % VBG pH VBG pCO2 VBG pO2 VBG HCO3 VBG Total CO2 VBG O2 Saturation VBG Base Excess Sodium 129 L Potassium 4.4 Chloride 94 L Carbon Dioxide 25 Anion Gap 10.0 BUN 11 Creatinine 0.9 Estimated GFR (MDRD) 106 Glucose 678 H* POC Whole Bld Glucose 457 H Estimat Average Glucose 410 H Hemoglobin A1c % 15.9 H Calcium 9.2 Magnesium 1.6 L Total Bilirubin 1.5 H AST 31 ALT 41 Alkaline Phosphatase 151 H Total Protein 7.0 Albumin 4.0 Globulin 3.0 Albumin/Globulin Ratio 1.3 Lipase 67 Serum Ketones 01/13/24 13:32 WBC RBC Hgb Hct MCV MCH MCHC RDW Plt Count MPV Neut # (Auto) Lymph # (Auto) [place] # (Auto) Eos # (Auto) Baso # (Auto) Absolute Nucleated RBC Nucleated RBC % VBG pH VBG pCO2 VBG pO2 VBG HCO3 VBG Total CO2 VBG O2 Saturation VBG Base Excess Sodium Potassium Chloride Carbon Dioxide Anion Gap BUN Creatinine Estimated GFR (MDRD) Glucose POC Whole Bld Glucose 385 H Estimat Average Glucose Hemoglobin A1c % Calcium Magnesium Total Bilirubin AST ALT Alkaline Phosphatase Total Protein Albumin Globulin Albumin/Globulin Ratio Lipase Serum Ketones PD Medical Decision Making - ED course Complexity details: reviewed results, re-evaluated patient, considered differential (He had had borderline diabetes in past but did not tolerate Metformin as got nausea/vomiting with 3 attempts at taking it. Has been off it with good sugars until recently. Has noted hyperglycemia Sxs for 1-2 months increasing. Today at [facility], noted BS 600s. ), d/w patient, d/w PMD (Dr Murillo, who was building contractor for office today, as pt's PCP was out of office this week. ) ED course: borderline diabetes for good part of a year. Has had steroid dosings with his chemotherapies the past few months. Has had polydispsia and polyuria, with nausea, weakness, fatigue, blurred vision. Noted very elevated sugar today at [facility]. referred to ER for eval. Here found to have elevated BS in 600s as well, with small ketones but not acidotic per se. Given IVf fluidss and IV insulin dosing to improve the sugar into tissues. He is feeling much improved with energy and such. Repeat blood sugars show stepwise improvement at 457 then 385. Had oral intake without problems. he is supposed to return to [facility] if gets discharged, to get his chemo infusion today. I talked with building contractor provider at his PCP clinic and arranged a plan to start glipizide now and they will add Lantus with teaching/etc in office in 3 days. Departure - Departure Disposition: Home, Self Care Clinical Impression: Hyperglycemia, Diabetes mellitus, new onset Condition: Stable Record reviewed to determine appropriate education?: Yes Follow-Up: Sara Denny PA [Primary Care Provider] - TABITHA MURILLO MD [Physician No Access] - Steve Fraire MD [Provider Admit Priv/Credential] - Prescriptions: glipiZIDE [Glucotrol] 5 mg PO BID 30 Days #60 tablet Comments: Avoid glucose containing drinks and high glucose foods. Stay well-hydrated. Continue your other usual medicines. Start with the glipizide medications 5 mg once daily today and tomorrow (you were given a dose here already). Then start twice daily. Follow-up with the [facility] [address] at [address] Mur[address] as your normal provider is out of the office this week. At that point they are likely to start you on a longer acting insulin called Lantus as well but they will discuss that in provide instruction and information. They will also provide instruction on monitoring your blood sugars at home etc. Go to the [facility] clinic as planned this afternoon. I sent the prescription for the glipizide to your preferred pharmacy, I went drug in [place]. Forms: PCP List Discharge Date/Time: 01/13/24 14:00
[2024-01-13 11:52] LABS: MAGNESIUM 1.6 mg/dL (1.7-2.3)
[2024-01-13 11:57] LABS: ALBUMIN/GLOBULIN RATIO 1.3 (1.0-2.2); BILIRUBIN,TOTAL 1.5 mg/dL (0.2-1.0); CALCIUM 9.2 mg/dL (8.5-10.3); CREATININE 0.9 mg/dL (0.6-1.3); POTASSIUM 4.4 mmol/L (3.5-4.5)
[2024-01-13] MEDS: glipiZIDE 5 MG TABLET PO STA (13:21)
[2024-01-13 13:31] VITALS: O2SAT 99
[2024-01-13 14:11] VITALS: BP 126/72
[2024-01-13 14:27] LABS: ESTIMATED AVERAGE GLUCOSE 410 mg/dL (70-100); HEMOGLOBIN A1c% 15.9 % (4.27-6.07)
== END 2024-01-13 14:00 | disposition home or self-care (01) ==
LOC: ED 11:07
DX: E11.65 Type 2 diabetes mellitus with hyperglycemia (principal); I10 Essential (primary) hypertension; Z79.899 Other long term (current) drug therapy
CPT/HCPCS: 36415; 80053; 82009; 82803; 83036; 83690; 83735; 85025; 99284; 99285; A9270; J1815

== ENCOUNTER 2024-05-07 08:00 | Outpatient (CLI) | payer OTHER | END 2024-05-07 23:59 | disposition home or self-care (01) | LOC: PC 08:00 | PROVIDERS: ATTEND Nurse Practitioner Adult Health | DX: Z51.5 Encounter for palliative care (principal); C19 Malignant neoplasm of rectosigmoid junction; C78.7 Secondary malignant neoplasm of liver and intrahepatic bile duct; G89.3 Neoplasm related pain (acute) (chronic); T40.2X5A Adverse effect of other opioids, initial encounter; K59.03 Drug induced constipation; E11.42 Type 2 diabetes mellitus with diabetic polyneuropathy; F41.9 Anxiety disorder, unspecified; Z71.89 Other specified counseling; Z79.84 Long term (current) use of oral hypoglycemic drugs; Z79.4 Long term (current) use of insulin | CPT/HCPCS: 99215 ==

== ENCOUNTER 2024-05-12 08:00 | Outpatient (CLI) | payer OTHER | END 2024-05-12 23:59 | disposition home or self-care (01) | LOC: PC 08:00 | PROVIDERS: ATTEND Nurse Practitioner Gerontology | DX: Z51.5 Encounter for palliative care (principal); C19 Malignant neoplasm of rectosigmoid junction; C78.7 Secondary malignant neoplasm of liver and intrahepatic bile duct; G89.3 Neoplasm related pain (acute) (chronic); Z79.899 Other long term (current) drug therapy; R11.10 Vomiting, unspecified; K59.03 Drug induced constipation; T45.1X5A Adverse effect of antineoplastic and immunosuppressive drugs, initial encounter; Z79.891 Long term (current) use of opiate analgesic; Z56.6 Other physical and mental strain related to work; E11.42 Type 2 diabetes mellitus with diabetic polyneuropathy; R63.4 Abnormal weight loss; Z85.46 Personal history of malignant neoplasm of prostate; Z71.89 Other specified counseling | CPT/HCPCS: 99215 ==

== ENCOUNTER 2024-05-12 11:19 | Outpatient (CLI) | payer OTHER | END 2024-05-12 11:20 | disposition home or self-care (01) | LOC: LAB 11:19 | PROVIDERS: ATTEND Physician Assistant Medical | DX: Z08 Encounter for follow-up examination after completed treatment for malignant neoplasm (principal); Z85.46 Personal history of malignant neoplasm of prostate | CPT/HCPCS: 36415; 84153 ==

== ENCOUNTER 2024-05-19 11:00 | Outpatient (CLI) | payer OTHER | END 2024-05-19 23:59 | disposition home or self-care (01) | LOC: PC 11:00 | PROVIDERS: ATTEND Nurse Practitioner Adult Health | DX: Z51.5 Encounter for palliative care (principal); G89.3 Neoplasm related pain (acute) (chronic); Z79.891 Long term (current) use of opiate analgesic; C78.7 Secondary malignant neoplasm of liver and intrahepatic bile duct; C18.9 Malignant neoplasm of colon, unspecified; E11.65 Type 2 diabetes mellitus with hyperglycemia; Z79.4 Long term (current) use of insulin; Z79.899 Other long term (current) drug therapy; K59.03 Drug induced constipation; T40.2X5A Adverse effect of other opioids, initial encounter; Z56.6 Other physical and mental strain related to work; R53.83 Other fatigue; R63.4 Abnormal weight loss; R53.1 Weakness; R63.0 Anorexia; R10.9 Unspecified abdominal pain; R11.10 Vomiting, unspecified; T45.1X5A Adverse effect of antineoplastic and immunosuppressive drugs, initial encounter | CPT/HCPCS: 99215 ==

== ENCOUNTER 2024-06-09 08:00 | Outpatient (CLI) | payer OTHER | END 2024-06-09 23:59 | disposition home or self-care (01) | LOC: PC 08:00 | PROVIDERS: ATTEND Nurse Practitioner Adult Health | DX: Z51.5 Encounter for palliative care (principal); T40.2X5A Adverse effect of other opioids, initial encounter; K59.03 Drug induced constipation; G89.3 Neoplasm related pain (acute) (chronic); C19 Malignant neoplasm of rectosigmoid junction; C78.7 Secondary malignant neoplasm of liver and intrahepatic bile duct; E11.9 Type 2 diabetes mellitus without complications; R63.4 Abnormal weight loss; Z68.25 Body mass index [BMI] 25.0-25.9, adult; Z71.89 Other specified counseling; Z79.4 Long term (current) use of insulin; Z79.84 Long term (current) use of oral hypoglycemic drugs | CPT/HCPCS: 99215 ==

== ENCOUNTER 2024-06-25 08:00 | Outpatient (CLI) | payer OTHER | END 2024-06-25 23:59 | disposition home or self-care (01) | LOC: PC 08:00 | PROVIDERS: ATTEND Nurse Practitioner Adult Health | DX: Z51.5 Encounter for palliative care (principal); C19 Malignant neoplasm of rectosigmoid junction; C78.7 Secondary malignant neoplasm of liver and intrahepatic bile duct; G89.3 Neoplasm related pain (acute) (chronic); Z79.899 Other long term (current) drug therapy; Z79.891 Long term (current) use of opiate analgesic; R63.4 Abnormal weight loss; R53.83 Other fatigue; R97.0 Elevated carcinoembryonic antigen [CEA]; R19.7 Diarrhea, unspecified; Z71.89 Other specified counseling | CPT/HCPCS: 99215 ==

== ENCOUNTER 2024-07-14 08:00 | Outpatient (CLI) | payer OTHER | END 2024-07-14 23:59 | disposition home or self-care (01) | LOC: PC 08:00 | PROVIDERS: ATTEND Nurse Practitioner Adult Health | DX: Z51.5 Encounter for palliative care (principal); C19 Malignant neoplasm of rectosigmoid junction; C78.7 Secondary malignant neoplasm of liver and intrahepatic bile duct; R19.7 Diarrhea, unspecified; G89.3 Neoplasm related pain (acute) (chronic); R63.4 Abnormal weight loss; E11.65 Type 2 diabetes mellitus with hyperglycemia; Z68.24 Body mass index [BMI] 24.0-24.9, adult; Z71.89 Other specified counseling; Z79.4 Long term (current) use of insulin; Z79.84 Long term (current) use of oral hypoglycemic drugs | CPT/HCPCS: 99215 ==

== ENCOUNTER 2024-07-16 21:41 | Emergency (ER) | payer OTHER ==
[2024-07-16 22:30] LABS: BASOPHILS % (AUTO) 0.2 %; HCT - HEMATOCRIT 37.6 % (42.0-52.0); HGB - HEMOGLOBIN 11.7 g/dL (14.0-18.0); LYMPHOCYTES # (AUTO) 1.3 10^3/uL (1.5-3.5); LYMPHOCYTES % (AUTO) 13.1 %; MEAN CORPUSCULAR HGB CONC 31.1 g/dL (32.0-36.0); MEAN CORPUSCULAR VOLUME 86.8 fL (80.0-94.0); MEAN PLATELET VOLUME 9.4 fL (7.4-11.4); MONOCYTES # (AUTO) 0.3 10^3/uL (0.0-1.0); MONOCYTES % (AUTO) 3.1 %; NEUTROPHILS # (AUTO) 8.1 10^3/uL (1.5-6.6); NEUTROPHILS % (AUTO) 83.1 %; PLT - PLATELET COUNT 470 10^3/uL (130-450); RED BLOOD COUNT 4.33 10^6/uL (4.70-6.10); RED CELL DISTRIBUTION WIDTH 19.5 % (12.0-15.0); WHITE BLOOD COUNT 9.8 x10^3/uL (4.8-10.8)
[2024-07-16 22:36] LABS: ALBUMIN 3.6 g/dL (3.2-5.5); ALBUMIN/GLOBULIN RATIO 0.9 (1.0-2.2); CREATININE 0.6 mg/dL (0.6-1.3); POTASSIUM 3.9 mmol/L (3.5-4.5); TOTAL PROTEIN 7.6 g/dL (6.4-8.9)
[2024-07-16] MEDS: SODIUM CHLORIDE 0.9% 1,000 ML IV STA (22:56)
[2024-07-16] MEDS: ONDANSETRON 4 MG/2 ML VIAL IVP STA (22:56)
[2024-07-16] MEDS: HYDROmorphone 1 MG/ML CARPUJECT IVP STA (22:58)
[2024-07-16 23:19] LABS: BILIRUBIN,URINE NEGATIVE (NEGATIVE); GLUCOSE, URINE (UA) NEGATIVE (NEGATIVE); KETONES,URINE (UA) 15 mg/dL (NEGATIVE); LEUKOCYTE ESTERASE, URINE NEGATIVE (NEGATIVE); NITRITE,URINE NEGATIVE (NEGATIVE); OCCULT BLOOD,URINE NEGATIVE (NEGATIVE); PROTEIN,URINE TRACE mg/dL (NEGATIVE); UROBILINOGEN,URINE 2 E.U./dL (NORMAL)
[2024-07-16 23:21] LABS: CLARITY,URINE CLEAR (CLEAR)
--- NOTE | 2024-07-17 00:46 | ED Physician Documentation ---
PD HPI ABD PAIN - Stated complaint Stated Complaint: ABD PX - Chief complaint Chief Complaint: Abd Pain - History obtained from History obtained from: Patient - History of Present Illness Timing - onset: Today Timing - duration: Hours Timing - details: Gradual onset, Still present Quality: Cramping, Sharp, Pain Location: Suprapubic Radiation: Lower back Improved by: Laying still Worsened by: Moving, Position, Palpation Associated symptoms: Nausea Similar symptoms before: Diagnosis (cramping from irrinotecan) Recently seen: Clinic (Received treatment in the [facility] clinic 2 days ago and had his pump removed today.) - Additional information Additional information: Bob Johnson is a 58-year-old male who is undergoing treatment for metastatic rectosigmoid adenocarcinoma. He has progressed from being stable on oxaliplatin with excellent tumor response and he is now on irinotecan. He feels he is having a harder time tolerating the irinotecan and today he is in with severe suprapubic cramping pain. He had his 5-FU pump removed today at the [facility] clinic and this evening his pain is intolerable. He has not yet developed diarrhea with this round. He has had diarrhea with each of the prior to rounds. He has had his dose reduced. Review of Systems Constitutional: denies: Fever Eyes: denies: Decreased vision Ears: denies: Ear pain Nose: denies: Congestion Throat: denies: Sore throat Respiratory: denies: Cough GI: reports: Abdominal Pain, Nausea. denies: Vomiting : denies: Dysuria, Frequency Skin: denies: Rash Musculoskeletal: denies: Neck pain, Back pain, Extremity pain PD PAST MEDICAL HISTORY - Past Medical History Past Medical History: Yes Cardiovascular: Hypertension Respiratory: None Neuro: None Endocrine/Autoimmune: None GI: Other : None, Benign prostate hypertrophy, Other HEENT: None Psych: None Musculoskeletal: Osteoarthritis, Chronic back pain Derm: None Other Past Medical History: Colon CA - Past Surgical History Past Surgical History: Yes General: Colonoscopy Ortho: Other - Present Medications Home Medications: Ambulatory Orders Medication Instructions Recorded Confirmed Colchicine 0.6 mg PO DAILY PRN 03/02/21 07/17/24 Sildenafil Citrate [Revatio] 20 mg PO DAILY PRN 03/02/21 07/17/24 allopurinoL [Zyloprim] 300 mg PO DAILY 03/02/21 07/17/24 Docusate Sodium 100Mg Capsule 100 mg PO DAILY #20 cap 04/10/23 07/17/24 [Colace 100Mg Capsule] oxyCODONE [Roxicodone] 5 mg PO Q6HR PRN 01/13/24 07/17/24 Ondansetron HCl 4 mg PO Q4HR PRN 05/06/24 07/17/24 Insulin NPH Human Isophane 10 units SUBQ HS 05/27/24 07/17/24 [Humulin N Kwikpen] Pegfilgrastim-Jmdb [Fulphila] 6 mg SUBQ 05/27/24 Empagliflozin [Jardiance] 10 mg PO DAILY 07/17/24 07/17/24 Hyoscyamine Sulfate 0.125 mg PO ONCE PRN 07/17/24 07/17/24 Morphine Sulfate ER [Ms Contin] 30 mg PO TID PRN 07/17/24 07/17/24 Prochlorperazine Maleate 10 mg PO Q6HR PRN 07/17/24 07/17/24 [Compazine] - Allergies Allergies/Adverse Reactions: Allergies Allergy/AdvReac Type Severity Reaction Status Date / Time metformin Allergy Emesis Verified 07/16/24 22:00 - Social History Does the pt smoke?: No Smoking Status: Never smoker Does the pt drink ETOH?: No Does the pt have substance abuse?: No - Immunizations Immunizations are current?: Yes - POLST Patient has POLST: No PD ED PE NORMAL - Vitals Vital signs reviewed: Yes (Hypertensive) - General General: Alert and oriented X 3, Well developed/nourished, Other (The patient appears to be in pain with steel chipper tone and flattened affect) - HEENT HEENT: Atraumatic, PERRL, EOMI - Neck Neck: Supple, no meningeal sign, No bony TTP - Cardiac Cardiac: RRR, No murmur - Respiratory Respiratory: No respiratory distress, Clear bilaterally - Abdomen Abdomen: Normal bowel sounds, Soft, Non distended, No organomegaly, Other (Mild suprapubic tenderness without guarding or rebound) - Back Back: No CVA TTP, No spinal TTP - Derm Derm: Normal color, Warm and dry, No rash - Extremities Extremities: No deformity, No edema - Neuro Neuro: Alert and oriented X 3, engine service repairer 2-12 intact, No motor deficit, No sensory deficit, Normal speech Eye Opening: Spontaneous Motor: Obeys Commands Verbal: Oriented GCS Score: 15 - Psych Psych: Normal mood, Normal affect Results - Vitals Vitals: Vital Signs - 24 hr 07/16/24 07/16/24 07/17/24 21:50 22:30 00:00 Temperature 36.8 C Heart Rate 80 75 70 Respiratory 16 16 16 Rate Blood Pressure 138/99 H 153/90 H 158/99 H O2 Saturation 97 97 99 07/17/24 01:00 Temperature Heart Rate 76 Respiratory 16 Rate Blood Pressure 156/88 H O2 Saturation 97 Oxygen O2 Source Room air - Labs Labs: Laboratory Tests 07/16/24 07/16/24 07/16/24 22:19 22:19 23:00 WBC 9.8 RBC 4.33 L Hgb 11.7 L Hct 37.6 L MCV 86.8 MCH 27.0 MCHC 31.1 L RDW 19.5 H Plt Count 470 H MPV 9.4 Neut # (Auto) 8.1 H Lymph # (Auto) 1.3 L [place] # (Auto) 0.3 Eos # (Auto) 0.0 Baso # (Auto) 0.0 Absolute Nucleated RBC 0.00 Nucleated RBC % 0.0 Sodium 137 Potassium 3.9 Chloride 100 L Carbon Dioxide 28 Anion Gap 9.0 BUN 16 Creatinine 0.6 Estimated GFR (MDRD) 169 Glucose 108 H Calcium 9.0 Total Bilirubin 1.0 AST 31 ALT 22 Alkaline Phosphatase 165 H Total Protein 7.6 Albumin 3.6 Globulin 4.0 Albumin/Globulin Ratio 0.9 L Lipase 10 L Urine Color DARK YELLOW Urine Clarity CLEAR Urine pH 7.0 Ur Specific [place] 1.020 Urine Protein TRACE Urine Glucose (UA) NEGATIVE Urine Ketones 15 H Urine Occult Blood NEGATIVE Urine Nitrite NEGATIVE Urine Bilirubin NEGATIVE Urine Urobilinogen 2 H Ur Leukocyte Esterase NEGATIVE Ur Microscopic Review NOT INDICATED Urine Culture Comments NOT INDICATED PD Medical Decision Making - ED course Complexity details: reviewed old records, reviewed results, re-evaluated patient, considered differential, d/w patient ED course: 58-year-old male undergoing treatment for stage IV rectal cancer is is not a tolerating his irinotecan and has significant suprapubic pain. His pain is ameliorated with the use of intravenous Dilaudid the patient feels comfortable and is requesting to go home. Departure - Departure Disposition: 01 Home, Self Care Clinical Impression: Abdominal cramping Condition: Stable Instructions: Irinotecan injection Follow-Up: Kaleb Blanton MD [Physician No Access] - Comments: Bob, today it looks like you had some's significant cramping from the irinotecan and it looks like you have some relief with the strong pain medication provided (dilaudid IV). Follow-up with your oncologist as planned. Forms: PCP List Discharge Date/Time: 07/17/24 01:05
[2024-07-17 01:10] VITALS: BP 156/88; O2SAT 97
== END 2024-07-17 01:05 | disposition home or self-care (01) ==
LOC: ED 21:41
DX: R10.30 Lower abdominal pain, unspecified (principal); T45.1X5A Adverse effect of antineoplastic and immunosuppressive drugs, initial encounter
CPT/HCPCS: 36415; 80053; 81001; 81003; 83690; 85025; 87086; 96374; 96375; 99283